=== PATIENT | female | born 1975 | race Caucasian/White ===

== ENCOUNTER 2021-08-09 12:44 | Outpatient (CLI) | payer MEDICARE ==
[2021-08-09 21:15] LABS: SARS-CoV-2 PCR by NAA Not Detected (NotDetected)
== END 2021-08-09 12:45 | disposition home or self-care (01) ==
LOC: CSHLAB 12:44
PROVIDERS: ATTEND Surgery
DX: Z01.812 Encounter for preprocedural laboratory examination (principal); Z20.822 Contact with and (suspected) exposure to COVID-19
CPT/HCPCS: U0003; U0005

== ENCOUNTER 2021-08-22 11:54 | Outpatient (CLI) | payer MEDICARE ==
[2021-08-23 08:45] LABS: SARS-CoV-2 PCR by NAA Not Detected (NotDetected)
== END 2021-08-22 11:55 | disposition home or self-care (01) ==
LOC: CSHLAB 11:54
PROVIDERS: ATTEND Surgery
DX: Z01.812 Encounter for preprocedural laboratory examination (principal); Z20.822 Contact with and (suspected) exposure to COVID-19
CPT/HCPCS: U0003; U0005

== ENCOUNTER 2021-08-27 06:57 | Day surgery (SDC) | payer MEDICARE ==
[2021-08-12 10:46] VITALS: BMI 25.8
[2021-08-27] MEDS ORDERED: Lidocaine 1% MPF 2 ML VIAL ONE (07:44)
== END 2021-08-27 09:32 | disposition home or self-care (01) ==
LOC: CSHSDC 06:57
PROVIDERS: ATTEND Surgery
PROC: 0DB68ZZ Excision of Stomach, Via Natural or Artificial Opening Endoscopic (ICD-10-PCS; principal; 2021-08-27)
DX: K21.9 Gastro-esophageal reflux disease without esophagitis (principal); Z98.84 Bariatric surgery status; K31.7 Polyp of stomach and duodenum; K29.70 Gastritis, unspecified, without bleeding; M79.605 Pain in left leg
CPT/HCPCS: 88305; J2704

== ENCOUNTER 2021-08-27 09:38 | Outpatient (CLI) | payer MEDICARE | END 2021-08-27 09:39 | disposition home or self-care (01) | LOC: CSHULT 09:38 | PROVIDERS: ATTEND Internal Medicine | DX: M79.605 Pain in left leg (principal) | CPT/HCPCS: J2704 ==

== ENCOUNTER 2021-09-02 19:35 | Emergency (ER) | payer MEDICARE ==
[2021-09-02] MEDS ORDERED: HYDROcodone/Acetaminophen 5/325 mg Tablet ONE (21:03)
== END 2021-09-02 22:52 | disposition home or self-care (01) ==
LOC: CSHERS 19:35
DX: M79.605 Pain in left leg (principal); E11.43 Type 2 diabetes mellitus with diabetic autonomic (poly)neuropathy; K31.84 Gastroparesis; I10 Essential (primary) hypertension; Z79.82 Long term (current) use of aspirin; Z79.899 Other long term (current) drug therapy